=== PATIENT | male | born 1995 | race Caucasian/White ===

== ENCOUNTER 2021-04-10 19:07 | Emergency (ER) | payer SELFPAY ==
[2021-04-10 20:09] VITALS: BP 139/77; PULSE 67; RESP 15; TEMP 36.9; O2SAT 100; BMI 21.7
[2021-04-10 20:15] VITALS: O2SAT 100
--- NOTE | 2021-04-10 20:53 | XRR_ITS ---
PROCEDURE INFORMATION: Exam: XR Chest Exam date and time: 04/10/2021 8:55 PM Age: 25 years old Clinical indication: Cough and shortness of breath TECHNIQUE: Imaging protocol: XR of the chest. Views: 1 view. COMPARISON: CR Chest 2 views* [id number] 05/18/2019 4:14 PM FINDINGS: Lungs: Unremarkable. No consolidation. Pleural spaces: Unremarkable. No pleural effusion. No pneumothorax. Heart/Mediastinum: Unremarkable. No cardiomegaly. Bones/joints: Unremarkable. XR/XR chest 1V portable [id number] IMPRESSION: Negative for infiltrate
--- NOTE | 2021-04-10 20:54 | W.ED.COVID ---
HPI - COVID General: Chief Complaint: COVID symptoms Stated Complaint: H/A, CONGESTION, SORE THROAT Time Seen by Provider: 04/10/21 20:20 Triage information: Has fever, cough or shortness of breath. No known COVID + exposure last 14 days History of Present Illness: HPI Narrative: Patient is a 25-year-old male comes to the ED with upper respiratory symptoms. Patient says since Wednesday he has had sinus congestion and pressure along with drainage. He said his throat is irritated, but it has gotten better over the past couple days. He describes having just mild cough. Patient disease a history of sinus problems. He is also complaining of a headache as well. Denies any known contact with COVID-19 positive patient. Patient says before coming to the ED took some [id number] Tylenol flu medication. Patient endorses having a loss of taste and smell as well. COVID 19 common symptoms: positive headache(s) and nasal congestion; negative fever(s), chills, non-productive cough, productive cough, dyspnea, fatigue, throat pain, nausea, vomiting or diarrhea COVID 19 other sytmptoms: negative chest pain COVID Results: Nasal/Oral Coronavirus 2019 PCR Pending 04/10/21 22:16 04/10/21 Review of Systems Const: Denies: fever(s), chills or fatigue Eyes: Denies: change in vision or eye discomfort ENMT: Reports: nasal discharge, nasal congestion and sinus pain (maxillary sinus pain); Denies: throat pain or odynophagia Card: Denies: chest pain, palpitations, edema, swelling of feet/ankles, dyspnea on exertion or orthopnea Resp: Denies: dyspnea, productive cough or non-productive cough GI: Denies: abdominal pain, nausea, vomiting, diarrhea, constipation or hematochezia : Denies: flank pain, difficulty urinating, dysuria or hematuria Musc: Denies: neck pain, back pain or extremity swelling Skin/Breast: Denies: rash or new lesions Neuro: Reports: headache(s); Denies: numbness in extremities or weakness in extremities Physical Exam Const: COMMON NORMALS: no acute distress, patient oriented x3, healthy appearing and alert GENERAL APPEARANCE: cooperative and comfortable HENMT: COMMON NORMALS: normocephalic HEAD & SCALP: normocephalic FACE & SINUS: sinus tenderness frontal (Bilateral) and maxillary (Bilateral) MOUTH: Normal oral and palatal mucosa present THROAT: posterior oropharynx normal and uvula midline Neck/C-Spine: COMMON NORMALS: supple GENERAL: Yes normal visual inspection Resp: COMMON NORMALS: normal respiratory effort, No retractions, No use of accessory muscles and clear to auscultation bilaterally AUSCULTATION: clear to auscultation bilaterally Cardio: COMMON NORMALS: regular rate, regular rhythm, S1 normal heart sound present, S2 normal heart sound present, No gallops present (Cardio), No clicks present (Cardio), No murmurs present (Cardio) and Peripheral pulses 2+ throughout RATE: regular rate RHYTHM: regular rhythm HEART SOUNDS: S1 normal heart sound present and S2 normal heart sound present PERIPHERAL PULSES: Peripheral pulses 2+ throughout GI: COMMON NORMALS: Normal to inspection, nondistended, normoactive bowel sounds present, Soft to palpation, non-tender and no masses PALPATION: Yes Soft to palpation : COMMON NORMALS: Yes no CVA tenderness BLADDER/KIDNEY EXAM: Yes no CVA tenderness Back/Pelvis: COMMON NORMALS: no CVA tenderness Extremity: COMMON NORMALS: normal to inspection Neuro: COMMON NORMALS: patient oriented x3 and moves all extremities SENSORIUM/ORIENTATION: Yes alert Skin: GENERAL SKIN EXAM: dry skin Course Vital Signs: Vital signs: Vital Signs Temperature 98.4 F 04/10/21 22:25 Pulse Rate 67 04/10/21 20:09 Respiratory Rate 15 04/10/21 22:25 Blood Pressure 139/77 04/10/21 20:09 Pulse Oximetry 100 04/10/21 22:25 MDM - COVID MDM Narrative: Medical decision making narrative: Patient is a 25-year-old male comes to the ED with upper respiratory infection symptoms and sinus congestion and pain. Patient's vitals are stable and he appears nontoxic and in no acute distress or pain. Patient has some bilateral maxillary sinus tenderness. The rest of the exam was benign. Chest x-ray showed no acute findings. COVID-19 test pending. Patient diagnosed with sinusitis and upper respiratory infection. He was discharged home with a prescription for Augmentin and Medrol Dosepak. Return to ED precautions given. Told patient self quarantine until he finds out COVID-19 test results. I told him to contact [facility] in the next 48 hours to find out results. Follow-up with PCP in 7 to 10 days for reevaluation. Patient understood and agree with plan. Lab Data: Attestation: I reviewed the patient's lab results. Imaging Data: CXR: Attestation: I personally reviewed and interpreted this imaging study as follows: Radiologist's impression: [id number] [place], [place] [address]VRun ReportSigned Patient: Vamsi Stephen #: [id number]: 1995Acct#:[id number]/Sex: 25 / MADM Date: 04/10/21Loc: ERRoom/Bed:Attending Dr: Ordering Provider/Ordering MD: Hansel Haynes Date of Service: 04/10/21 Procedure(s): XR chest 1V portable [id number] Accession Number(s): [id number] Report Number: [id number] PROCEDURE INFORMATION: Exam: XR Chest Exam date and time: 04/10/2021 8:55 PM Age: 25 years old Clinical indication: Cough and shortness of breath TECHNIQUE: Imaging protocol: XR of the chest. Views: 1 view. COMPARISON: CR Chest 2 views* [id number] 05/18/2019 4:14 PM FINDINGS: Lungs: Unremarkable. No consolidation. Pleural spaces: Unremarkable. No pleural effusion. No pneumothorax. Heart/Mediastinum: Unremarkable. No cardiomegaly. Bones/joints: Unremarkable. XR/XR chest 1V portable [id number] IMPRESSION: Negative for infiltrate Dictated By:Adonay Cespedes MDSigned By:Adonay Cespedes MDSigned Date/Time:04/10/212136DD/ 35 COVID Results: Nasal/Oral Coronavirus 2019 PCR Pending 04/10/21 22:16 04/10/21 Discharge Plan Discharge Patient Disposition: Home Clinical Impression: Sinusitis, acute maxillary Qualifiers: Recurrence: not specified as recurrent Qualified Code(s): J01.00 - Acute maxillary sinusitis, unspecified Upper respiratory infection Qualifiers: URI type: acute nasopharyngitis (common cold) Qualified Code(s): J00 - Acute nasopharyngitis [common cold] Condition: Stable Prescriptions: New Augmentin 500-125 mg tablet 1 tab PO BID 10 Days Qty: 20 RF: 0 Medrol (Bogdan) 4 mg tablets,dose pack See Rx Instructions .ROUTE .COMPLEX Qty: 21 RF: 0 Discharge Orders: Discharge ED (Routine); Ordered 04/10/21 Ordered By: Hansel Haynes Discharge Diet: Regular Discharge Activity: Limit activity as instructed Patient Instructions: Sinusitis (ED), Upper Respiratory Infection (ED) Activity Restrictions/Additional Instructions: Follow-up with medical provider as directed. Self quarantine pending COVID-19 test results. The COVID-19 labs should be back in 24 to 48 hours. Take medications as prescribed. Take [id number] Tylenol or ibuprofen for fevers or pain. Return to the ER or your medical provider if condition worsens. Please read and understand discharge instructions. Thank you for choosing [facility] for your healthcare needs today. Please realize this is an emergency room and that we are providing you with a medical screening exam and this may not be complete and all inclusive of all the testing and or work up that you may need to determine your ailment or severity of your illness. It is very important that you follow up as instructed or that you return to the Emergency Department should you have concerns or if your condition changes or worsens in any way. Stand Alone Forms: Work/School Release Coding Level of Care Code ED Phlebotomy Program Coordinator for Heather Bermudez Exam Comprehensive
[2021-04-10 22:25] VITALS: RESP 15; TEMP 36.9; O2SAT 100
[2021-04-12 14:10] LABS: Coronavirus Test Green County Not Detected
== END 2021-04-10 22:26 | disposition home or self-care (01) ==
PROVIDERS: Emergency Provider Physician Assistant
DX: J01.00 Acute maxillary sinusitis, unspecified (principal); J00 Acute nasopharyngitis [common cold]; Z20.822 Contact with and (suspected) exposure to COVID-19
CPT/HCPCS: 71045; 87635; 99283

== ENCOUNTER 2021-07-11 22:13 | Emergency (ER) | payer OTHER, SELFPAY ==
[2021-07-11 22:18] VITALS: BP 134/75; PULSE 109; RESP 18; TEMP 37.7; O2SAT 94; BMI 19.2
[2021-07-11] MEDS: acetaminophen 500 mg Tablet 1000 MG PO (22:32)
[2021-07-11 23:01] LABS: SARS Covid-2 Antigen Positive (Negative)
--- NOTE | 2021-07-11 23:31 | ED_ITS ---
HPI - COVID General: Chief Complaint: Shortness of Breath/Dyspnea Stated Complaint: sob, COVID symptoms Time Seen by Provider: 07/11/21 23:31 Triage information: Has fever, cough or shortness of breath . No known COVID + exposure last 14 days History of Present Illness: HPI Narrative: Patient came in today for complaints of illness for about 1 week now. Patient woke up feeling short of breath tonight. Patient appears well. Patient appears in no pain. COVID 19 common symptoms: positive dyspnea COVID Results: SARS-CoV-2 Antigen (Rapid) Positive (Negative) H 07/11/21 22:29 07/11/21 Nasal/Oral Coronavirus 2019 PCR Not detected 04/10/21 22:16 04/10/21 Review of Systems General: Reports: 10 or more systems reviewed and unremarkable except in HPI and below Resp: Reports: dyspnea Physical Exam Const: COMMON NORMALS: no acute distress and patient oriented x3 GENERAL APPEARANCE: cooperative HENMT: COMMON NORMALS: normocephalic and Normal external nose present HEAD & SCALP: normal to inspection and normocephalic NOSE: Normal external nose present MOUTH: Normal oral and palatal mucosa present Eye: GENERAL EYE: appearance normal, both eyes and all related structures Neck/C-Spine: COMMON NORMALS: full ROM Chest: COMMONS NORMALS: normal inspection of the chest Resp: COMMON NORMALS: normal respiratory effort and clear to auscultation bilaterally EFFORT & INSPECTION: Yes able to speak in complete sentences AUSCULTATION: clear to auscultation bilaterally Cardio: COMMON NORMALS: regular rate and regular rhythm RATE: regular rate RHYTHM: regular rhythm GI: COMMON NORMALS: non-tender Back/Pelvis: COMMON NORMALS: thoracic and lumbar spine normal to inspection Extremity: COMMON NORMALS: normal to inspection Neuro: COMMON NORMALS: patient oriented x3 and moves all extremities Psych: COMMON NORMALS: mental status grossly normal and cooperative Skin: COMMON NORMALS: no rashes or lesions noted GENERAL SKIN EXAM: no rashes or lesions noted Course Vital Signs: Vital signs: Vital Signs Temperature 100 F H 07/12/21 00:01 Pulse Rate 109 H 07/12/21 00:01 Respiratory Rate 18 07/12/21 00:01 Blood Pressure 134/75 07/12/21 00:01 Pulse Oximetry 94 07/12/21 00:01 MDM - COVID MDM Narrative: Medical decision making narrative: Patient came in today for complaints of shortness of breath starting tonight. Patient has been ill for about 1 week. Patient has continued to work. On exam lungs are clear to auscultation. Abdomen soft nontender. Patient does have a fine rash to his upper extremities. Distal pulses are intact. No's abnormal swelling is noted. Oropharynx is pink and moist. Vital signs are normal except for mild elevation in temperature of 100 and mild elevation in pulse at 109. Differential diagnosis includes COVID-19, viral syndrome, pneumonia. COVID-19 test was positive. Lungs were clear to auscultation patient's O2 sats were 94- 98% on room air. Patient did have a slight rash which I believe is probably secondary to his viral syndrome. Reviewed exam with patient with recommendations for treatment. Patient was given 1 dose of dexamethasone for his shortness of breath. Patient was written a prescription for Zofran to help with nausea and to improve appetite. Patient was given an albuterol inhaler to help with shortness of breath. Patient was recommended to return to the ER for worsening symptoms or new concerns. Patient reported understanding. Lab Data: Labs: Lab Results 07/11/21 Range/Units 22:29 SARS-CoV-2 Ag (Rap id) Positive H (Negative) COVID Results: SARS-CoV-2 Antigen (Rapid) Positive (Negative) H 07/11/21 22:29 07/11/21 Nasal/Oral Coronavirus 2019 PCR Not detected 04/10/21 22:16 04/10/21 Discharge Plan Discharge Patient Disposition: Home Clinical Impression: COVID-19 Condition: Stable Prescriptions: New ondansetron 4 mg tablet,disintegrating 4 mg PO Q8H PRN (Reason: nausea and vomiting) Qty: 10 RF: 0 Discharge Orders: Discharge ED (Routine); Ordered 07/11/21 Ordered By: Isaiah Clinton Discharge Diet: Advance as tolerated Discharge Activity: Increase activity as tolerated Patient Instructions: Opioid Safety Activity Restrictions/Additional Instructions: Use albuterol, 2 puffs every 4 hours as needed for shortness of breath. Be sure to drink plenty of water. Use medications as directed. Follow-up with primary care in 3 days for recheck. Return to the ER for worsening symptoms or new concerns. Coding Level of Care Code ED Irb Compliance Coordinator for Heather Bermudez
[2021-07-11 23:55] VITALS: PULSE 88; RESP 17; O2SAT 98
[2021-07-11] MEDS: albuterol 8 gm MDI 2 PUFF INHALATION (23:55)
[2021-07-11] MEDS: dexamethasone 4 mg Tablet 10 MG PO (23:57)
[2021-07-12] VITALS: PULSE 89
[2021-07-12 00:01] VITALS: BP 134/75; PULSE 109; RESP 18; TEMP 37.7; O2SAT 94
== END 2021-07-12 00:02 | disposition home or self-care (01) ==
PROVIDERS: Emergency Provider Nurse Practitioner Family
DX: U07.1 COVID-19 (principal)
CPT/HCPCS: 87426; 94640; 99283; J3535; J8540

== ENCOUNTER 2022-05-14 13:50 | Oncology outpatient (recurring) (ONCR) | payer OTHER, SELFPAY | END 2022-06-07 23:59 | disposition home or self-care (01) | PROVIDERS: Visit Provider Internal Medicine Medical Oncology | DX: Z53.9 Procedure and treatment not carried out, unspecified reason (principal) ==

== ENCOUNTER 2022-07-09 05:34 | Day surgery (SDC) | payer OTHER, SELFPAY ==
[2022-07-09] VITALS (7 sets, daily range): BP systolic 111–140; BP diastolic 60–88; PULSE 84–92; RESP 12–16; TEMP 36.3–37.1; O2SAT 94–99
--- NOTE | 2022-07-09 | SCC_ITS ---
Procedure done: Mediport insertion 1.9 seconds of fluoroscopic guidance, for a cumulative dose of 0.2 mGy, was provided to Dr. Aguilar by the radiology department. C-arm images of the chest were saved for the patient's permanent record. [facility]
--- NOTE | 2022-07-09 06:29 | P.ANESASSM_ITS ---
Pre-Anesthetic Assessment Height/Weight: Height 1.73 m Weight 59.421 kg Temp Pulse Resp BP Pulse Ox O2 Del Method 97.3 F L 88 16 140/88 99 07/09/22 05:58 07/09/22 05:58 07/09/22 05:58 07/09/22 05:58 07/09/22 05:58 07/09/22 05:58 Preop Diagnosis: Testicular cancer Operation Date: 07/09/22 07:00 Proposed Procedures p Portacath Placement 06038,C62.12(Not Applicable) - Ha Aguilar DO Familial anesthetic complications: None Was Beta Tracey taken within 24 hours: N/A Was Clonidine taken within 24 hours: N/A Last intake: Intake Last Liquid Date 07/08/22 Last Liquid Time 23:40 Last Solid Date 07/08/22 Last Solid Time 22:30 Social No alcohol and No tobacco Exam alert, oriented x 3, clear to auscultation bilaterally and regular rate & rhythm Airway Submandibular: within normal limits Cervical ROM: within normal limits Mallampati: Class I Dentition: full History/ROS No significant complaints Pulmonary None reported CV/HEM None reported None reported Hepatic Seminonoma of left testis GI None reported Metabolic None reported Musc/skel None reported Neuropsych None reported Anesthetic Plan ASA status: 3 Anesthesia: Anesthesia Evaluation and General Other: We discussed risk and benefits of general anesthesia including PONV, sore throat (sometimes severe), corneal abrasion, positioning and peripheral nerve injuries, life threatening allergic reaction, post operative ICU admission requiring prolonged intubation, stroke, heart attack, , and rare incidences of recall. Patient consents to proceed with general anesthesia. Risk of > 500 ml blood loss (7ml/kg in children): No Medications/Allergies Home Medications Medication Instructions Recorded Confirmed Last Taken Type Lactobacillus 40-Bifidobact 1 cap PO DAILY 05/14/22 07/09/22 07/08/22 History 3-S.thermophilus 100 billion cell capsule (Probiotic) ascorbic acid (vitamin C) 1,500 mg 1,500 mg PO DAILY 05/14/22 07/09/22 07/08/22 History tablet,extended release multivitamin 1 tab PO DAILY 06/03/22 07/09/22 07/08/22 History Allergies Allergy/AdvReac Type Severity Reaction Status Date / Time Penicillins Allergy Mild ALGY-Rash Verified 06/03/22 08:29 [facility] Anesthesia Medical History Seminoma of left testis Surgical History Hx of unilateral orchiectomy (03/27/22) Left radical orchiectomy Family History Mother Cervical cancer Brother , 28 Brain aneurysm Social History Smoking and tobacco status: former smoker Alcohol intake: current Alcohol intake frequency: holidays/special occasions only Alcohol type: hard liquor Adopted: No Caregiver/support person: No Lives independently: Yes Housing: Apartment Marital status: Life Partner Highest education level completed: High School Graduate service: No Current occupational status: employed Data Anesthesia Cardiac Studies: No Data to Display
[2022-07-09] MEDS: vancomycin 1,000 MG in sodium chloride 0.9% 250 ML 250 MG IV (06:42)
--- NOTE | 2022-07-09 06:47 | SC_ITS ---
WS: [id number] Exam: C-arm FL for CVA [id number] Date/Time of Exam: 07/09/2022 6:47 AM Reason For Exam: OR 6 Single anterior posterior C-arm image of the left chest is submitted for evaluation. The image depicts a left-sided subclavian port appearing to end in the lower one third of the SVC. Th e visualized left lung is fully expanded. No other significant finding on this limited study.
[2022-07-09] MEDS: midazolam 1 mg/mL INJ 2 mL 2 MG IVP (06:52)
--- NOTE | 2022-07-09 06:54 | P.HP_ITS ---
Providers/Chief Complaint Chief Complaint: SEMINOMA History of Present Illness Vamsi Stephen is a 27 year old male with a seminoma who presents for Mediport placement Review of Systems General: Reports: 10 or more systems reviewed and unremarkable except in HPI and below Medications/Allergies Home Medications Medication Instructions Recorded Confirmed Last Taken Type Lactobacillus 40-Bifidobact 1 cap PO DAILY 05/14/22 07/09/22 07/08/22 History 3-S.thermophilus 100 billion cell capsule (Probiotic) ascorbic acid (vitamin C) 1,500 mg 1,500 mg PO DAILY 05/14/22 07/09/22 07/08/22 History tablet,extended release multivitamin 1 tab PO DAILY 06/03/22 07/09/22 07/08/22 History Allergies Allergy/AdvReac Type Severity Reaction Status Date / Time Penicillins Allergy Mild ALGY-Rash Verified 06/03/22 08:29 PFSH Acute PFSH: Medical History Seminoma of left testis Surgical History Hx of unilateral orchiectomy (03/27/22) Left radical orchiectomy Family History Mother Cervical cancer Brother , 28 Brain aneurysm Social History Smoking and tobacco status: former smoker Alcohol intake: current Alcohol intake frequency: holidays/special occasions only Alcohol type: hard liquor Adopted: No Caregiver/support person: No Lives independently: Yes Housing: Apartment Marital status: Life Partner Highest education level completed: High School Graduate service: No Current occupational status: employed Vitals/I&O/Wt Last Vital Signs Temp 97.3 F L 07/09/22 05:58 Pulse 88 07/09/22 05:58 Resp 16 07/09/22 05:58 BP 140/88 07/09/22 05:58 Pulse Ox 99 07/09/22 05:58 O2 Del Method 07/09/22 05:58 Weight last 48 hrs Weight 131 lb Physical Exam Narrative: General : Patient is well developed , no acute distress, oriented x3 Head : Normal cephalic, a-traumatic. Ears : Pinnae and external canal are normal. Hearing is normal. Eyes : PERRLA, Sclera and injection are normal. No conjunctival discharge. Nose : Mucous membranes are without erythema. Throat : buccal mucosa is normal, gums are without significant recession or hypertrophy. Lungs : Equal chest rise bilaterally, no use of accessory muscles, trachea is midline. Cor : Rate and rhythm are normal. Abdomen : Soft, ND, NT, no g/r/m Extremities : No edema, no cyanosis or clubbing, dorsalis pedis pulses are present bilaterally, non-tender to palpation of calves. Upper extremities are normal bilaterally. Back : non-tender to palpation, no CVA tenderness. Neuro : CN II - XII intact, Upper and lower extremities have equal and full strength A&P Assessment and plan (1) Seminoma of descended left testis: Status: Acute Plan Mediport insertion The risks and benefits of the procedure have been explained and documented Attestations Medical Necessity Statement*: will go home Coding Level of Care Code Acute Otr Owner Operator for g Fwd Diagnoses Seminoma of descended left testis C62.12
[2022-07-09] MEDS: heparin, porcine 1,000 unit/mL INJ 10 mL 10000 UNIT INJECTION (07:24)
[2022-07-09] MEDS: sodium chloride 0.9% 100 mL Bag XX (07:25)
--- NOTE | 2022-07-09 07:42 | P.OP_ITS ---
Operative Report Date of procedure: July 09, 2022 Pre-op diagnosis: Preop Diagnosis Testicular cancer Post-op diagnosis: same Procedure done: Mediport insertion Implants: PowerPort Surgeon: Dr. Ha Aguilar DO Anesthesia: MAC Estimated blood loss (mL): 5 Complications: None apparent Brief History: 27-year-old male with seminoma in need of chemotherapy access. The risks and benefits of Mediport insertion were explained and documented. Procedure: Patient was taken to the operating room and placed supine on the operating room table. All bony prominences were padded. She was given IV sedation and monitored throughout the case by the anesthesia personnel. SCDs were placed and turned on. The arms were tucked to the side. Patient received Ancef 2 g preoperatively IV. The bilateral chest wall was prepped and draped in usual sterile fashion using chlorhexidine base prep. Sterile drapes were applied. We did procedure pause prior to beginning. An 18 gauge needle was placed in the left subclavian vein. Dark, nonpulsatile blood was aspirated. A guidewire was placed through the needle centrally toward the atrial/vena caval junction. Fluoroscopy visualized good placement. The needle was removed and the guidewire was clipped to the drape with a hemostat. Further local anesthetic was infiltrated in the soft tissues of the left chest wall and a #15 blade was used to make a horizontal skin incision. A subcutaneous Mediport pocket was created using Bovie cautery, dissecting down through the skin and subcutaneous tissues. Meticulous hemostasis was achieved. The Mediport was sutured in position using 3-0 vicryl suture x3 stitches. A #15 blade was used to make a small skin kylee around the guidewire insertion area. The Mediport tubing was tunneled through the subcutaneous tissues up to the needle insertion location. A dilator with a peel-away sheath was placed over the guidewire and placed centrally. After measuring with fluoroscopy, the Mediport tubing was cut to length so that the tip would end at the atrial/vena caval junction. The inner cannula and the guidewire were removed, leaving the dilator sheath in place. The Mediport was flushed. The tip of the catheter was inserted through the peel-away sheath and the peel-away sheath removed in the standard fashion. The Mediport was accessed with a straight Sexton needle and dark, nonpulsatile blood was as pirated and flushed using heparinized saline to hep-lock the Mediport. Final fluoroscopy visualization showed no kink in the catheter and the tip of the Mediport tubing near the atrial/vena caval junction. Both skin incisions were thoroughly irrigated and suctioned dry. Meticulous hemostasis noted. The Mediport incision was closed using interrupted 3-0 Vicryl suture for the deep dermal layer and 4-0 Vicryl run to close the skin edge. The left subclavian insertion site incision was closed with a single subcuticular stitch. Skin glue was applied as a topical dressing. This was allowed to dry. Patient was awakened from anesthesia and transferred via her cart to the recovery room in stable condition. All needle, sponge, and instrument counts were correct per the operating personnel x2 counts.
--- NOTE | 2022-07-09 07:47 | XR_ITS ---
WS: [id number] Exam: XR chest 1V portable [id number] Date/Time of Exam: 07/09/2022 7:48 AM Reason For Exam: s/p mediport Comparison 04/10/2021. Left subclavian MediPort is been placed and ends in the lower one third of the SVC in good position. The lungs are clear and fully expanded. Normal cardiomediastinal silhouette. No pleural effusions. Saqib ny structures are intact. XR/XR chest 1V portable [id number] IMPRESSION: 1. Left subclavian port in satisfactory position. No acute cardiopulmonary find ing.
[2022-07-09] MEDS: sodium chloride 0.9% 1,000 ML 30 ML IV (08:29)
--- NOTE | 2022-07-09 14:23 | ANE.PACU2 ---
Inpatient post-anesthesia follow up: Airway intact: Yes Vital signs: Temperature 98.7 F Pulse Rate 84 Respiratory Rate 16 Blood Pressure 115/83 Pulse Oximetry 94 Oxygen Delivery Me thod Room Air Oxygen Flow Rate Fraction of Inspir ed Oxygen Hydration adequate: Yes Nausea and vomiting: No Pain level: 1 Mental status: Baseline
== END 2022-07-09 08:32 | disposition home or self-care (01) ==
PROVIDERS: Visit Provider Surgery
PROC: (CPT 36561; principal; 2022-07-09 07:00)
DX: C62.12 Malignant neoplasm of descended left testis (principal); C62.92 Malignant neoplasm of left testis, unspecified whether descended or undescended; Z87.891 Personal history of nicotine dependence; Z88.0 Allergy status to penicillin; Z90.79 Acquired absence of other genital organ(s)
CPT/HCPCS: 36561; 71045; 76000; 77001; C1788; J1644; J2250; J2704; J3010; J3370; J7030; J7050

== ENCOUNTER 2022-08-03 13:30 | Oncology outpatient (recurring) (ONCR) | payer OTHER, SELFPAY ==
[2022-07-27 08:23] LABS: Basophils % 0.2 %; Eosinophils # 0.1 10^3/uL (0.0-0.8); Eosinophils % 1.9 %; Hematocrit 42.8 % (42.0-52.0); Hemoglobin 14.8 g/dL (11.7-16.6); Lymphocytes # 1.3 10^3/uL (0.8-4.8); Lymphocytes % 19.8 %; Mean Corpuscular HGB Conc 34.6 g/dL (30.0-36.0); Mean Corpuscular Hemoglobin 30.5 pg (28.0-34.0); Mean Corpuscular Volume 88.2 fl (80-94); Mean Platelet Volume 10.3 fL (7.4-10.4); Monocytes # 0.6 10^3/uL (0.2-0.9); Monocytes % 9.6 %; Neutrophils # 4.42 10^3/uL (1.8-7.7); Nucleated Red Blood Cells % 0 %; Platelet Count 228 10^3/cmm (130-400); Red Blood Count 4.85 10^6/uL (4.1-5.3); Red Cell Distribution Width 12.7 % (12.1-15.1); White Blood Count 6.5 10^3/uL (4.0-10.0)
[2022-07-27 09:18] LABS: Alanine Aminotransferase 14 U/L (0-41); Albumin Level 3.8 g/dL (3.5-5.2); Alkaline Phosphatase 121 U/L (40-130); Aspartate Amino Transferase 20 U/L (0-40); Blood Urea Nitrogen 12 mg/dL (6-20); Calcium 8.7 mg/dL (8.5-10.5); Carbon Dioxide 26 mmol/L (22-29); Chloride 102 mmol/L (98-107); Globulin 2.7 g/dL (1.3-4.6); Glomerular Filtration Rate 160.4 mL/min (90-130); Glucose 145 mg/dL (65-115); Osmolality Calculated 284 mOsm/kg (285-295); Sodium 136 mmol/L (136-145); Total Bilirubin 1.4 mg/dL (0.15-1.2); Total Protein 6.5 g/dL (6.6-8.7)
[2022-07-27 09:22] LABS: Anion Gap 11.5 (5-19); HCG Tumor Marker < 1 mIU/mL (0-3); Lactate Dehydrogenase 375 U/L (135-225); Potassium 3.5 mmol/L (3.5-5.1)
[2022-07-27] MEDS: OLANZapine 5 mg TABLET PO (10:36)
[2022-07-27] MEDS: acetaminophen 325 mg Tablet 650 MG PO (10:36)
[2022-07-27] MEDS: sodium chloride 0.9% 250 ML 100 ML IV (11:05)
[2022-07-27] MEDS: ondansetron 2 mg/ML SDV 2 mL 8 MG IVP (11:05)
[2022-07-27] MEDS: famotidine 20 mg/2 mL INJ IVP (11:06)
[2022-07-27] MEDS: diphenhydrAMINE 50 mg/mL SDV 1mL 25 MG IVP (11:07)
[2022-07-27] MEDS: fosaprepitant 150 MG in sodium chloride 0.9% 150 ML 300 MG IV (11:08)
[2022-07-27] MEDS: etoposide 170 MG in sodium chloride 0.9%(non-DEHP) 500 ML 508.5 MG IV (12:12)
[2022-07-27] MEDS: potassium chloride 20 MEQ in sodium chloride 0.9% 500 ML 500 MEQ IV (14:34)
[2022-07-27] MEDS: FUROsemide 10 mg/mL SDV 2mL 20 MG IVP (14:34)
[2022-07-27 15:48] VITALS: BP 103/69; PULSE 79; RESP 16; TEMP 36.3; O2SAT 99
[2022-07-28 08:01] VITALS: BP 126/72; PULSE 87; RESP 16; TEMP 36.7; O2SAT 99
[2022-07-28] MEDS: sodium chloride 0.9% 250 ML 100 ML IV (10:12)
[2022-07-28] MEDS: ondansetron 2 mg/ML SDV 2 mL 8 MG IVP (10:13)
[2022-07-28] MEDS: famotidine 20 mg/2 mL INJ IVP (10:17)
[2022-07-28] MEDS: diphenhydrAMINE 50 mg/mL SDV 1mL 25 MG IVP (10:20)
[2022-07-28] MEDS: acetaminophen 325 mg Tablet 650 MG PO (10:20)
[2022-07-28] MEDS: OLANZapine 5 mg TABLET PO (10:20)
[2022-07-28] MEDS: etoposide 170 MG in sodium chloride 0.9%(non-DEHP) 500 ML 508.5 MG IV (10:47)
[2022-07-28] MEDS: FUROsemide 10 mg/mL SDV 2mL 20 MG IVP (13:09)
[2022-07-28] MEDS: potassium chloride 20 MEQ in sodium chloride 0.9% 500 ML 500 MEQ IV (13:13)
[2022-07-28 14:40] VITALS: BP 128/70; PULSE 85; RESP 16; TEMP 37.1; O2SAT 99
[2022-07-29] MEDS: acetaminophen 325 mg Tablet 650 MG PO (10:23)
[2022-07-29] MEDS: diphenhydrAMINE 50 mg/mL SDV 1mL 25 MG IVP (10:25)
[2022-07-29] MEDS: ondansetron 2 mg/ML SDV 2 mL 8 MG IVP (10:26)
[2022-07-29] MEDS: famotidine 20 mg/2 mL INJ IVP (10:26)
[2022-07-29] MEDS: OLANZapine 5 mg TABLET PO (10:26)
[2022-07-29] MEDS: sodium chloride 0.9% 250 ML 75 ML IV (10:27)
[2022-07-29] MEDS: etoposide 170 MG in sodium chloride 0.9%(non-DEHP) 500 ML 508.5 MG IV (11:13)
[2022-07-29] MEDS: potassium chloride 20 MEQ in sodium chloride 0.9% 500 ML 500 MEQ IV (13:35)
[2022-07-29] MEDS: FUROsemide 10 mg/mL SDV 2mL 20 MG IVP (14:00)
[2022-07-29 14:26] VITALS: BP 112/74; PULSE 60; RESP 16; TEMP 36.3; O2SAT 99
[2022-07-30 08:01] VITALS: BP 122/78; BP 136/80; PULSE 84; PULSE 89; RESP 16; TEMP 36.9; TEMP 37.3; O2SAT 99
[2022-07-30] MEDS: sodium chloride 0.9% 250 ML 75 ML IV (09:51)
[2022-07-30] MEDS: diphenhydrAMINE 50 mg/mL SDV 1mL 25 MG IVP (09:52)
[2022-07-30] MEDS: OLANZapine 5 mg TABLET PO (09:52)
[2022-07-30] MEDS: famotidine 20 mg/2 mL INJ IVP (09:52)
[2022-07-30] MEDS: acetaminophen 325 mg Tablet 650 MG PO (09:53)
[2022-07-30] MEDS: ondansetron 2 mg/ML SDV 2 mL 8 MG IVP (09:53)
[2022-07-30] MEDS: etoposide 170 MG in sodium chloride 0.9%(non-DEHP) 500 ML 508.5 MG IV (10:21)
[2022-07-30] MEDS: potassium chloride 20 MEQ in sodium chloride 0.9% 500 ML 500 MEQ IV (12:43)
[2022-07-30] MEDS: FUROsemide 10 mg/mL SDV 2mL 20 MG IVP (13:29)
[2022-07-30 13:30] VITALS: BP 131/86; PULSE 78; RESP 16; TEMP 36.5; O2SAT 99
[2022-07-31] MEDS: OLANZapine 5 mg TABLET PO (08:50)
[2022-07-31] MEDS: acetaminophen 325 mg Tablet 650 MG PO (08:50)
[2022-07-31] MEDS: sodium chloride 0.9% 250 ML 100 ML IV (08:58)
[2022-07-31] MEDS: diphenhydrAMINE 50 mg/mL SDV 1mL 25 MG IVP (08:59)
[2022-07-31] MEDS: famotidine 20 mg/2 mL INJ IVP (08:59)
[2022-07-31] MEDS: palonosetron 0.25 mg/5 mL SDV IVP (09:09)
[2022-07-31] MEDS: etoposide 170 MG in sodium chloride 0.9%(non-DEHP) 500 ML 508.5 MG IV (09:38)
[2022-07-31] MEDS: potassium chloride 20 MEQ in sodium chloride 0.9% 500 ML 500 MEQ IV (11:58)
[2022-07-31] MEDS: pegfilgrastim 6 mg/0.6 mL Kit (onpro) SUBCUT (12:44)
[2022-07-31] MEDS: FUROsemide 10 mg/mL SDV 2mL 20 MG IVP (12:46)
[2022-07-31 12:55] VITALS: BP 104/55; PULSE 68; RESP 16; TEMP 37; O2SAT 98
[2022-08-03 14:26] LABS: Basophils # 0.1 10^3/uL (0.0-0.1); Basophils % 0.5 %; Eosinophils # 0.2 10^3/uL (0.0-0.8); Eosinophils % 0.8 %; Hematocrit 41.7 % (42.0-52.0); Hemoglobin 14.4 g/dL (11.7-16.6); Lymphocytes # 0.5 10^3/uL (0.8-4.8); Lymphocytes % 2.7 %; Mean Corpuscular HGB Conc 34.5 g/dL (30.0-36.0); Mean Corpuscular Hemoglobin 30.6 pg (28.0-34.0); Mean Corpuscular Volume 88.7 fl (80-94); Mean Platelet Volume 10.6 fL (7.4-10.4); Monocytes # 0.1 10^3/uL (0.2-0.9); Monocytes % 0.7 %; Nucleated Red Blood Cells % 0 %; Platelet Count 145 10^3/cmm (130-400); Red Cell Distribution Width 12.4 % (12.1-15.1); White Blood Count 18.4 10^3/uL (4.0-10.0)
[2022-08-03 14:49] LABS: Alanine Aminotransferase 59 U/L (0-41); Albumin Level 4.4 g/dL (3.5-5.2); Alkaline Phosphatase 182 U/L (40-130); Anion Gap 14.2 (5-19); Aspartate Amino Transferase 26 U/L (0-40); Blood Urea Nitrogen 13 mg/dL (6-20); Calcium 8.9 mg/dL (8.5-10.5); Carbon Dioxide 27 mmol/L (22-29); Chloride 100 mmol/L (98-107); Globulin 2.1 g/dL (1.3-4.6); Glucose 137 mg/dL (65-115); Osmolality Calculated 286 mOsm/kg (285-295); Potassium 4.2 mmol/L (3.5-5.1); Sodium 137 mmol/L (136-145); Total Bilirubin 1.6 mg/dL (0.15-1.2); Total Protein 6.5 g/dL (6.6-8.7)
[2022-08-03 15:12] LABS: Neutrophils # 22.51 10^3/uL (1.8-7.7); Neutrophils % 95.3 %; Slide Review Slide Review Perform
== END 2022-08-07 23:59 | disposition home or self-care (01) ==
PROVIDERS: Nurse Practitioner; Visit Provider Internal Medicine Medical Oncology
DX: C62.12 Malignant neoplasm of descended left testis (principal)
CPT/HCPCS: 36591; 80053; 82105; 83615; 84702; 85025; 96366; 96367; 96372; 96375; 96377; 96413; 96415; 96417; J1100; J1200; J1453; J1940; J2405; J2469; J2506; J3475; J3480; J3490; J7030; J7040; J7050; J9060; J9181

== ENCOUNTER 2022-09-07 08:00 | Oncology outpatient (recurring) (ONCR) | payer OTHER, SELFPAY ==
[2022-08-17 08:30] LABS: Basophils % 0.4 %; Eosinophils % 0.1 %; Hematocrit 33.6 % (42.0-52.0); Hemoglobin 11.9 g/dL (11.7-16.6); Lymphocytes # 1.6 10^3/uL (0.8-4.8); Lymphocytes % 23.4 %; Mean Corpuscular HGB Conc 35.4 g/dL (30.0-36.0); Mean Corpuscular Volume 87.5 fl (80-94); Mean Platelet Volume 9.5 fL (7.4-10.4); Monocytes # 0.6 10^3/uL (0.2-0.9); Monocytes % 9.1 %; Neutrophils # 4.21 10^3/uL (1.8-7.7); Nucleated Red Blood Cells % 0 %; Platelet Count 228 10^3/cmm (130-400); Red Blood Count 3.84 10^6/uL (4.1-5.3); Red Cell Distribution Width 13.8 % (12.1-15.1); White Blood Count 6.9 10^3/uL (4.0-10.0)
[2022-08-17 08:46] LABS: Alanine Aminotransferase 15 U/L (0-41); Albumin Level 3.8 g/dL (3.5-5.2); Alkaline Phosphatase 109 U/L (40-130); Anion Gap 10.9 (5-19); Aspartate Amino Transferase 14 U/L (0-40); Blood Urea Nitrogen 16 mg/dL (6-20); Calcium 8.5 mg/dL (8.5-10.5); Carbon Dioxide 26 mmol/L (22-29); Chloride 103 mmol/L (98-107); Globulin 2.4 g/dL (1.3-4.6); Glomerular Filtration Rate 160.4 mL/min (90-130); Glucose 109 mg/dL (65-115); Osmolality Calculated 284 mOsm/kg (285-295); Potassium 3.9 mmol/L (3.5-5.1); Sodium 136 mmol/L (136-145); Total Bilirubin 0.4 mg/dL (0.15-1.2); Total Protein 6.2 g/dL (6.6-8.7)
[2022-08-17 09:03] LABS: Slide Review Slide Review Perform
[2022-08-17] MEDS: OLANZapine 5 mg TABLET PO (09:53)
[2022-08-17] MEDS: acetaminophen 325 mg Tablet 650 MG PO (09:53)
[2022-08-17] MEDS: palonosetron 0.25 mg/5 mL SDV IVP (09:58)
[2022-08-17] MEDS: sodium chloride 0.9% 250 ML 100 ML IV (09:58)
[2022-08-17] MEDS: famotidine 20 mg/2 mL INJ IVP (09:59)
[2022-08-17] MEDS: diphenhydrAMINE 50 mg/mL SDV 1mL 25 MG IVP (10:00)
[2022-08-17] MEDS: fosaprepitant 150 MG in sodium chloride 0.9% 150 ML 300 MG IV (10:01)
[2022-08-17] MEDS: etoposide 170 MG in sodium chloride 0.9%(non-DEHP) 500 ML 508.5 MG IV (11:06)
[2022-08-17] MEDS: FUROsemide 10 mg/mL SDV 2mL 20 MG IVP (13:12)
[2022-08-17] MEDS: potassium chloride 20 MEQ in sodium chloride 0.9% 500 ML 500 MEQ IV (13:12)
[2022-08-17 14:14] VITALS: BP 102/56; PULSE 88; RESP 18; TEMP 37.1; O2SAT 100
[2022-08-18 08:03] VITALS: BP 131/71; PULSE 91; RESP 16; TEMP 37.5; O2SAT 99
[2022-08-18] MEDS: OLANZapine 5 mg TABLET PO (08:17)
[2022-08-18] MEDS: acetaminophen 325 mg Tablet 650 MG PO (08:17)
[2022-08-18] MEDS: sodium chloride 0.9% 250 ML 100 ML IV (08:18)
[2022-08-18] MEDS: famotidine 20 mg/2 mL INJ IVP (08:20)
[2022-08-18] MEDS: diphenhydrAMINE 50 mg/mL SDV 1mL 25 MG IVP (08:24)
[2022-08-18] MEDS: etoposide 170 MG in sodium chloride 0.9%(non-DEHP) 500 ML 508.5 MG IV (10:20)
[2022-08-18] MEDS: potassium chloride 20 MEQ in sodium chloride 0.9% 500 ML 500 MEQ IV (12:22)
[2022-08-18] MEDS: FUROsemide 10 mg/mL SDV 2mL 20 MG IVP (12:25)
[2022-08-18 13:25] VITALS: BP 112/61; PULSE 87; RESP 16; TEMP 37.2; O2SAT 99
[2022-08-19 07:59] VITALS: BP 148/77; PULSE 86; RESP 16; TEMP 37.2; O2SAT 99
[2022-08-19] MEDS: famotidine 20 mg/2 mL INJ IVP (08:18)
[2022-08-19] MEDS: sodium chloride 0.9% 250 ML 100 ML IV (08:18)
[2022-08-19] MEDS: OLANZapine 5 mg TABLET PO (08:19)
[2022-08-19] MEDS: acetaminophen 325 mg Tablet 650 MG PO (08:19)
[2022-08-19] MEDS: diphenhydrAMINE 50 mg/mL SDV 1mL 25 MG IVP (08:20)
[2022-08-19] MEDS: etoposide 170 MG in sodium chloride 0.9%(non-DEHP) 500 ML 508.5 MG IV (10:21)
[2022-08-19] MEDS: potassium chloride 20 MEQ in sodium chloride 0.9% 500 ML 500 MEQ IV (12:28)
[2022-08-19] MEDS: FUROsemide 10 mg/mL SDV 2mL 20 MG IVP (12:31)
[2022-08-19 13:41] VITALS: BP 122/68; PULSE 89; RESP 16; TEMP 37.7; O2SAT 99
[2022-08-20] MEDS: sodium chloride 0.9% 250 ML 100 ML IV (09:59)
[2022-08-20] MEDS: acetaminophen 325 mg Tablet 650 MG PO (10:01)
[2022-08-20] MEDS: OLANZapine 5 mg TABLET PO (10:01)
[2022-08-20] MEDS: diphenhydrAMINE 50 mg/mL SDV 1mL 25 MG IVP (10:02)
[2022-08-20] MEDS: famotidine 20 mg/2 mL INJ IVP (10:02)
[2022-08-20] MEDS: palonosetron 0.25 mg/5 mL SDV IVP (10:06)
[2022-08-20] MEDS: etoposide 170 MG in sodium chloride 0.9%(non-DEHP) 500 ML 508.5 MG IV (10:29)
[2022-08-20] MEDS: potassium chloride 20 MEQ in sodium chloride 0.9% 500 ML 500 MEQ IV (12:55)
[2022-08-20] MEDS: FUROsemide 10 mg/mL SDV 2mL 20 MG IVP (12:55)
[2022-08-20 14:18] VITALS: BP 130/80; PULSE 87; TEMP 37.5
[2022-08-21] MEDS: sodium chloride 0.9% 250 ML 100 ML IV (09:26)
[2022-08-21] MEDS: OLANZapine 5 mg TABLET PO (09:27)
[2022-08-21] MEDS: acetaminophen 325 mg Tablet 650 MG PO (09:27)
[2022-08-21] MEDS: diphenhydrAMINE 50 mg/mL SDV 1mL 25 MG IVP (09:28)
[2022-08-21] MEDS: famotidine 20 mg/2 mL INJ IVP (09:28)
[2022-08-21] MEDS: etoposide 170 MG in sodium chloride 0.9%(non-DEHP) 500 ML 508.5 MG IV (09:37)
[2022-08-21] MEDS: FUROsemide 10 mg/mL SDV 2mL 20 MG IVP (11:54)
[2022-08-21] MEDS: potassium chloride 20 MEQ in sodium chloride 0.9% 500 ML 500 MEQ IV (11:55)
[2022-08-21] MEDS: pegfilgrastim 6 mg/0.6 mL Kit (onpro) SUBCUT (12:16)
[2022-08-21 13:04] VITALS: BP 121/76; PULSE 92; TEMP 37.5; O2SAT 99
[2022-08-31 13:59] LABS: Basophils % 0.2 %; Hematocrit 34.3 % (42.0-52.0); Lymphocytes # 0.8 10^3/uL (0.8-4.8); Lymphocytes % 17.9 %; Mean Corpuscular Hemoglobin 31.4 pg (28.0-34.0); Mean Corpuscular Volume 89.8 fl (80-94); Mean Platelet Volume 10.1 fL (7.4-10.4); Monocytes # 0.5 10^3/uL (0.2-0.9); Neutrophils # 3.23 10^3/uL (1.8-7.7); Neutrophils % 69.8 %; Nucleated Red Blood Cells % 0 %; Platelet Count 104 10^3/cmm (130-400); Red Blood Count 3.82 10^6/uL (4.1-5.3); Red Cell Distribution Width 16.1 % (12.1-15.1); White Blood Count 4.6 10^3/uL (4.0-10.0)
[2022-08-31 14:19] LABS: Alanine Aminotransferase 13 U/L (0-41); Alkaline Phosphatase 153 U/L (40-130); Anion Gap 9.9 (5-19); Aspartate Amino Transferase 12 U/L (0-40); Blood Urea Nitrogen 10 mg/dL (6-20); Calcium 9.1 mg/dL (8.5-10.5); Carbon Dioxide 27 mmol/L (22-29); Chloride 100 mmol/L (98-107); Globulin 2.6 g/dL (1.3-4.6); Glucose 104 mg/dL (65-115); Osmolality Calculated 275 mOsm/kg (285-295); Potassium 3.9 mmol/L (3.5-5.1); Sodium 133 mmol/L (136-145); Total Bilirubin 0.6 mg/dL (0.15-1.2); Total Protein 6.6 g/dL (6.6-8.7)
--- NOTE | 2022-08-31 16:07 | PC.NURSE ---
Called patient to let him know that per Dr. Gates his labs were good. Patient acknowledged understanding and had no other questions. Patient due for his next treatment on 09/07/22.
[2022-09-07 08:23] LABS: Basophils # 0.1 10^3/uL (0.0-0.1); Basophils % 0.8 %; Eosinophils % 0.5 %; Hematocrit 35.2 % (42.0-52.0); Hemoglobin 12.3 g/dL (11.7-16.6); Lymphocytes % 24.8 %; Mean Corpuscular HGB Conc 34.9 g/dL (30.0-36.0); Mean Corpuscular Hemoglobin 31.9 pg (28.0-34.0); Mean Corpuscular Volume 91.2 fl (80-94); Mean Platelet Volume 9.3 fL (7.4-10.4); Monocytes # 0.6 10^3/uL (0.2-0.9); Monocytes % 7.2 %; Neutrophils # 4.48 10^3/uL (1.8-7.7); Neutrophils % 56.3 %; Nucleated Red Blood Cells % 0 %; Platelet Count 279 10^3/cmm (130-400); Red Blood Count 3.86 10^6/uL (4.1-5.3); Red Cell Distribution Width 17.2 % (12.1-15.1)
[2022-09-07 08:38] LABS: Slide Review Slide Review Perform
[2022-09-07 08:48] LABS: Alanine Aminotransferase 12 U/L (0-41); Albumin Level 3.7 g/dL (3.5-5.2); Alkaline Phosphatase 105 U/L (40-130); Anion Gap 12.7 (5-19); Aspartate Amino Transferase 14 U/L (0-40); Blood Urea Nitrogen 13 mg/dL (6-20); Calcium 8.8 mg/dL (8.5-10.5); Carbon Dioxide 26 mmol/L (22-29); Chloride 102 mmol/L (98-107); Globulin 2.6 g/dL (1.3-4.6); Glomerular Filtration Rate 134.3 mL/min (90-130); Glucose 98 mg/dL (65-115); Osmolality Calculated 284 mOsm/kg (285-295); Potassium 3.7 mmol/L (3.5-5.1); Sodium 137 mmol/L (136-145); Total Bilirubin 0.5 mg/dL (0.15-1.2); Total Protein 6.3 g/dL (6.6-8.7)
[2022-09-07] MEDS: acetaminophen 325 mg Tablet 650 MG PO (10:31)
[2022-09-07] MEDS: OLANZapine 5 mg TABLET PO (10:31)
[2022-09-07] MEDS: sodium chloride 0.9% 250 ML 100 ML IV (10:31)
[2022-09-07] MEDS: famotidine 20 mg/2 mL INJ IVP (10:32)
[2022-09-07] MEDS: diphenhydrAMINE 50 mg/mL SDV 1mL 25 MG IVP (10:34)
[2022-09-07] MEDS: fosaprepitant 150 MG in sodium chloride 0.9% 150 ML 300 MG IV (10:34)
[2022-09-07] MEDS: etoposide 170 MG in sodium chloride 0.9%(non-DEHP) 500 ML 508.5 MG IV (11:29)
[2022-09-07] MEDS: FUROsemide 10 mg/mL SDV 2mL 20 MG IVP (13:35)
[2022-09-07] MEDS: potassium chloride 20 MEQ in sodium chloride 0.9% 500 ML 500 MEQ IV (13:47)
[2022-09-07 14:48] VITALS: BP 106/64; PULSE 71; RESP 16; TEMP 36.8; O2SAT 99
== END 2022-09-07 23:59 | disposition home or self-care (01) ==
PROVIDERS: Nurse Practitioner; Visit Provider Internal Medicine Medical Oncology
DX: Z51.11 Encounter for antineoplastic chemotherapy (principal); Z79.899 Other long term (current) drug therapy; C62.12 Malignant neoplasm of descended left testis
CPT/HCPCS: 36591; 80053; 85025; 96366; 96367; 96372; 96375; 96377; 96413; 96417; J1100; J1200; J1453; J1940; J2469; J2506; J3475; J3480; J3490; J7030; J7040; J7050; J9060; J9181

== ENCOUNTER 2022-10-07 08:00 | Oncology outpatient (recurring) (ONCR) | payer OTHER, SELFPAY ==
[2022-09-08] MEDS: sodium chloride 0.9% 250 ML 100 ML IV (09:36)
[2022-09-08] MEDS: acetaminophen 325 mg Tablet 650 MG PO (09:36)
[2022-09-08] MEDS: OLANZapine 5 mg TABLET PO (09:36)
[2022-09-08] MEDS: diphenhydrAMINE 50 mg/mL SDV 1mL 25 MG IVP (09:38)
[2022-09-08] MEDS: famotidine 20 mg/2 mL INJ IVP (09:39)
[2022-09-08] MEDS: etoposide 170 MG in sodium chloride 0.9%(non-DEHP) 500 ML 508.5 MG IV (10:04)
[2022-09-08] MEDS: FUROsemide 10 mg/mL SDV 2mL 20 MG IVP (12:19)
[2022-09-08] MEDS: potassium chloride 20 MEQ in sodium chloride 0.9% 500 ML 500 MEQ IV (12:21)
[2022-09-08 13:37] VITALS: BP 129/58; PULSE 82; TEMP 37.2; O2SAT 98
[2022-09-09] MEDS: sodium chloride 0.9% 250 ML 100 ML IV (09:33)
[2022-09-09] MEDS: acetaminophen 325 mg Tablet 650 MG PO (09:34)
[2022-09-09] MEDS: OLANZapine 5 mg TABLET PO (09:34)
[2022-09-09] MEDS: famotidine 20 mg/2 mL INJ IVP (09:36)
[2022-09-09] MEDS: diphenhydrAMINE 50 mg/mL SDV 1mL 25 MG IVP (09:36)
[2022-09-09] MEDS: etoposide 170 MG in sodium chloride 0.9%(non-DEHP) 500 ML 508.5 MG IV (10:04)
[2022-09-09] MEDS: FUROsemide 10 mg/mL SDV 2mL 20 MG IVP (12:56)
[2022-09-09] MEDS: potassium chloride 20 MEQ in sodium chloride 0.9% 500 ML 500 MEQ IV (12:58)
[2022-09-09 14:09] VITALS: BP 127/71; PULSE 83; TEMP 36.9; O2SAT 83
[2022-09-10] MEDS: OLANZapine 5 mg TABLET PO (10:03)
[2022-09-10] MEDS: acetaminophen 325 mg Tablet 650 MG PO (10:03)
[2022-09-10] MEDS: sodium chloride 0.9% 250 ML 100 ML IV (10:03)
[2022-09-10] MEDS: diphenhydrAMINE 50 mg/mL SDV 1mL 25 MG IVP (10:05)
[2022-09-10] MEDS: famotidine 20 mg/2 mL INJ IVP (10:06)
[2022-09-10] MEDS: etoposide 170 MG in sodium chloride 0.9%(non-DEHP) 500 ML 508.5 MG IV (10:29)
[2022-09-10] MEDS: FUROsemide 10 mg/mL SDV 2mL 20 MG IVP (12:40)
[2022-09-10] MEDS: potassium chloride 20 MEQ in sodium chloride 0.9% 500 ML 500 MEQ IV (12:44)
[2022-09-10 15:09] VITALS: BP 119/71; PULSE 87; TEMP 36.9; O2SAT 98
[2022-09-11 07:56] VITALS: BP 137/79; PULSE 83; RESP 18; TEMP 36.6; O2SAT 99
[2022-09-11] MEDS: sodium chloride 0.9% 250 ML 100 ML IV (09:08)
[2022-09-11] MEDS: palonosetron 0.25 mg/5 mL SDV IVP (09:09)
[2022-09-11] MEDS: famotidine 20 mg/2 mL INJ IVP (09:10)
[2022-09-11] MEDS: acetaminophen 325 mg Tablet 650 MG PO (09:11)
[2022-09-11] MEDS: diphenhydrAMINE 50 mg/mL SDV 1mL 25 MG IVP (09:11)
[2022-09-11] MEDS: OLANZapine 5 mg TABLET PO (09:11)
[2022-09-11] MEDS: etoposide 170 MG in sodium chloride 0.9%(non-DEHP) 500 ML 508.5 MG IV (09:40)
[2022-09-11] MEDS: potassium chloride 20 MEQ in sodium chloride 0.9% 500 ML 500 MEQ IV (11:40)
[2022-09-11] MEDS: FUROsemide 10 mg/mL SDV 2mL 20 MG IVP (11:49)
[2022-09-11 12:28] VITALS: BP 122/79; PULSE 89; RESP 16; TEMP 36.9; O2SAT 99
[2022-09-11] MEDS: pegfilgrastim 6 mg/0.6 mL Kit (onpro) SUBCUT (12:29)
[2022-10-05 08:21] LABS: Basophils % 0.4 %; Eosinophils % 0.4 %; Hematocrit 35.5 % (42.0-52.0); Hemoglobin 12.3 g/dL (11.7-16.6); Lymphocytes # 1.5 10^3/uL (0.8-4.8); Lymphocytes % 26.3 %; Mean Corpuscular HGB Conc 34.6 g/dL (30.0-36.0); Mean Corpuscular Hemoglobin 32.3 pg (28.0-34.0); Mean Corpuscular Volume 93.2 fl (80-94); Mean Platelet Volume 9.7 fL (7.4-10.4); Monocytes # 0.5 10^3/uL (0.2-0.9); Monocytes % 8.9 %; Neutrophils # 3.44 10^3/uL (1.8-7.7); Neutrophils % 62.4 %; Nucleated Red Blood Cells % 0 %; Platelet Count 252 10^3/cmm (130-400); Red Blood Count 3.81 10^6/uL (4.1-5.3); Red Cell Distribution Width 16.8 % (12.1-15.1); White Blood Count 5.5 10^3/uL (4.0-10.0)
[2022-10-05 08:44] LABS: Alanine Aminotransferase 9 U/L (0-41); Albumin Level 3.9 g/dL (3.5-5.2); Alkaline Phosphatase 92 U/L (40-130); Anion Gap 11.8 (5-19); Aspartate Amino Transferase 14 U/L (0-40); Blood Urea Nitrogen 11 mg/dL (6-20); Calcium 8.8 mg/dL (8.5-10.5); Carbon Dioxide 25 mmol/L (22-29); Chloride 102 mmol/L (98-107); Globulin 2.4 g/dL (1.3-4.6); Glucose 116 mg/dL (65-115); Lactate Dehydrogenase 161 U/L (135-225); Osmolality Calculated 280 mOsm/kg (285-295); Potassium 3.8 mmol/L (3.5-5.1); Sodium 135 mmol/L (136-145); Total Bilirubin 0.7 mg/dL (0.15-1.2); Total Protein 6.3 g/dL (6.6-8.7)
[2022-10-05] MEDS: sodium chloride 0.9% 250 ML 100 ML IV (10:00)
[2022-10-05] MEDS: diphenhydrAMINE 50 mg/mL SDV 1mL 25 MG IVP (10:05)
[2022-10-05] MEDS: famotidine 20 mg/2 mL INJ IVP (10:10)
[2022-10-05] MEDS: acetaminophen 325 mg Tablet 650 MG PO (10:16)
[2022-10-05] MEDS: OLANZapine 5 mg TABLET PO (10:17)
[2022-10-05] MEDS: fosaprepitant 150 MG in sodium chloride 0.9% 150 ML 300 MG IV (10:30)
[2022-10-05] MEDS: [UNRECOGNIZED DRUG - REMARK] 509 MG IV (11:12)
[2022-10-05] MEDS: FUROsemide 10 mg/mL SDV 2mL 20 MG IVP (13:25)
[2022-10-05] MEDS: potassium chloride 20 MEQ in sodium chloride 0.9% 500 ML 500 MEQ IV (13:26)
[2022-10-05 14:27] VITALS: BP 113/77; PULSE 85; RESP 16; TEMP 36.6; O2SAT 99
[2022-10-06] MEDS: sodium chloride 0.9% 250 ML 100 ML IV (09:45)
[2022-10-06] MEDS: OLANZapine 5 mg TABLET PO (09:46)
[2022-10-06] MEDS: acetaminophen 325 mg Tablet 650 MG PO (09:46)
[2022-10-06] MEDS: diphenhydrAMINE 50 mg/mL SDV 1mL 25 MG IVP (09:48)
[2022-10-06] MEDS: famotidine 20 mg/2 mL INJ IVP (09:48)
[2022-10-06] MEDS: palonosetron 0.25 mg/5 mL SDV IVP (09:55)
[2022-10-06] MEDS: [UNRECOGNIZED DRUG - REMARK] 509 MG IV (10:15)
[2022-10-06] MEDS: FUROsemide 10 mg/mL SDV 2mL 20 MG IVP (12:35)
[2022-10-06] MEDS: potassium chloride 20 MEQ in sodium chloride 0.9% 500 ML 500 MEQ IV (12:36)
[2022-10-06 13:42] VITALS: BP 110/67; PULSE 79; TEMP 36.9; O2SAT 97
[2022-10-07] MEDS: OLANZapine 5 mg TABLET PO (09:28)
[2022-10-07] MEDS: acetaminophen 325 mg Tablet 650 MG PO (09:28)
[2022-10-07] MEDS: promethazine 25 mg Tablet PO (09:51)
[2022-10-07] MEDS: sodium chloride 0.9% 250 ML 100 ML IV (09:53)
[2022-10-07] MEDS: famotidine 20 mg/2 mL INJ IVP (09:53)
[2022-10-07] MEDS: diphenhydrAMINE 50 mg/mL SDV 1mL 25 MG IVP (09:55)
[2022-10-07] MEDS: [UNRECOGNIZED DRUG - REMARK] 509 MG IV (10:27)
[2022-10-07] MEDS: FUROsemide 10 mg/mL SDV 2mL 20 MG IVP (12:39)
[2022-10-07] MEDS: potassium chloride 20 MEQ in sodium chloride 0.9% 500 ML 500 MEQ IV (12:39)
== END 2022-10-07 23:59 | disposition home or self-care (01) ==
PROVIDERS: Visit Provider Internal Medicine Medical Oncology
DX: C62.12 Malignant neoplasm of descended left testis (principal); Z51.11 Encounter for antineoplastic chemotherapy; Z79.899 Other long term (current) drug therapy; Z79.52 Long term (current) use of systemic steroids
CPT/HCPCS: 80053; 83615; 85025; 96366; 96367; 96375; 96377; 96413; 96415; 96417; J1100; J1200; J1453; J1940; J2469; J2506; J3475; J3480; J3490; J7030; J7040; J7050; J9060; J9181; Q0169

== ENCOUNTER 2022-11-04 11:00 | Oncology outpatient (recurring) (ONCR) | payer OTHER, SELFPAY ==
[2022-10-08 08:00] VITALS: BP 126/81; PULSE 84; RESP 16; TEMP 37.2; O2SAT 99
[2022-10-08] MEDS: acetaminophen 325 mg Tablet 650 MG PO (10:06)
[2022-10-08] MEDS: OLANZapine 5 mg TABLET PO (10:06)
[2022-10-08] MEDS: sodium chloride 0.9% 250 ML 100 ML IV (10:06)
[2022-10-08] MEDS: famotidine 20 mg/2 mL INJ IVP (10:08)
[2022-10-08] MEDS: diphenhydrAMINE 50 mg/mL SDV 1mL 25 MG IVP (10:09)
[2022-10-08] MEDS: [UNRECOGNIZED DRUG - REMARK] 509 MG IV (10:29)
[2022-10-08] MEDS: FUROsemide 10 mg/mL SDV 2mL 20 MG IVP (12:51)
[2022-10-08] MEDS: potassium chloride 20 MEQ in sodium chloride 0.9% 500 ML 500 MEQ IV (12:52)
[2022-10-08 14:00] VITALS: BP 113/75; PULSE 85; RESP 16; TEMP 37.5; O2SAT 99
[2022-10-09] MEDS: acetaminophen 325 mg Tablet 650 MG PO (09:00)
[2022-10-09] MEDS: sodium chloride 0.9% 250 ML 100 ML IV (09:00)
[2022-10-09] MEDS: famotidine 20 mg/2 mL INJ IVP (09:01)
[2022-10-09] MEDS: diphenhydrAMINE 50 mg/mL SDV 1mL 25 MG IVP (09:01)
[2022-10-09] MEDS: OLANZapine 5 mg TABLET PO (09:01)
[2022-10-09] MEDS: palonosetron 0.25 mg/5 mL SDV IVP (09:04)
[2022-10-09] MEDS: [UNRECOGNIZED DRUG - REMARK] 509 MG IV (09:24)
[2022-10-09] MEDS: FUROsemide 10 mg/mL SDV 2mL 20 MG IVP (11:46)
[2022-10-09] MEDS: potassium chloride 20 MEQ in sodium chloride 0.9% 500 ML 500 MEQ IV (11:46)
[2022-10-09] MEDS: pegfilgrastim 6 mg/0.6 mL Kit (onpro) SUBCUT (12:42)
[2022-10-09 12:50] VITALS: BP 110/74; PULSE 92; RESP 16; TEMP 36.9; O2SAT 98
[2022-11-04 11:43] LABS: Basophils % 0.2 %; Eosinophils % 0.7 %; Hematocrit 36.4 % (42.0-52.0); Hemoglobin 12.4 g/dL (11.7-16.6); Lymphocytes # 0.9 10^3/uL (0.8-4.8); Lymphocytes % 20.7 %; Mean Corpuscular HGB Conc 34.1 g/dL (30.0-36.0); Mean Corpuscular Hemoglobin 32.9 pg (28.0-34.0); Mean Corpuscular Volume 96.6 fl (80-94); Mean Platelet Volume 9.5 fL (7.4-10.4); Monocytes # 0.5 10^3/uL (0.2-0.9); Monocytes % 11.5 %; Neutrophils # 2.89 10^3/uL (1.8-7.7); Neutrophils % 66.4 %; Nucleated Red Blood Cells % 0 %; Platelet Count 301 10^3/cmm (130-400); Red Blood Count 3.77 10^6/uL (4.1-5.3); Red Cell Distribution Width 14.5 % (12.1-15.1); White Blood Count 4.4 10^3/uL (4.0-10.0)
[2022-11-04 12:07] LABS: HCG Tumor Marker 1 mIU/mL (0-3)
[2022-11-04 12:20] LABS: Alanine Aminotransferase 17 U/L (0-41); Albumin Level 4.3 g/dL (3.5-5.2); Alkaline Phosphatase 96 U/L (40-130); Anion Gap 11.7 (5-19); Aspartate Amino Transferase 18 U/L (0-40); Blood Urea Nitrogen 13 mg/dL (6-20); Calcium 8.6 mg/dL (8.5-10.5); Carbon Dioxide 24 mmol/L (22-29); Chloride 103 mmol/L (98-107); Globulin 2.1 g/dL (1.3-4.6); Glomerular Filtration Rate 160.4 mL/min (90-130); Glucose 103 mg/dL (65-115); Lactate Dehydrogenase 163 U/L (135-225); Osmolality Calculated 280 mOsm/kg (285-295); Potassium 3.7 mmol/L (3.5-5.1); Sodium 135 mmol/L (136-145); Total Bilirubin 0.6 mg/dL (0.15-1.2); Total Protein 6.4 g/dL (6.6-8.7)
== END 2022-11-07 23:59 | disposition home or self-care (01) ==
PROVIDERS: Visit Provider Internal Medicine Medical Oncology
DX: C62.12 Malignant neoplasm of descended left testis (principal)
CPT/HCPCS: 36591; 80053; 82105; 83615; 84702; 85025; 96367; 96372; 96375; 96377; 96413; 96417; J1100; J1200; J1940; J2469; J2506; J3475; J3480; J3490; J7030; J7040; J7050; J9060; J9181

== ENCOUNTER 2022-12-11 11:15 | Oncology outpatient (recurring) (ONCR) | payer OTHER, SELFPAY ==
[2022-12-11 12:13] LABS: Basophils % 0.3 %; Eosinophils # 0.2 10^3/uL (0.0-0.8); Eosinophils % 2.9 %; Hematocrit 41.5 % (42.0-52.0); Hemoglobin 14.1 g/dL (11.7-16.6); Lymphocytes # 1.3 10^3/uL (0.8-4.8); Lymphocytes % 21.7 %; Mean Corpuscular Hemoglobin 30.7 pg (28.0-34.0); Mean Corpuscular Volume 90.2 fl (80-94); Mean Platelet Volume 9.6 fL (7.4-10.4); Monocytes # 0.6 10^3/uL (0.2-0.9); Monocytes % 10.1 %; Neutrophils # 3.94 10^3/uL (1.8-7.7); Neutrophils % 64.5 %; Nucleated Red Blood Cells % 0 %; Platelet Count 198 10^3/cmm (130-400); Red Cell Distribution Width 11.6 % (12.1-15.1); White Blood Count 6.1 10^3/uL (4.0-10.0)
[2022-12-11 12:37] LABS: Alanine Aminotransferase 39 U/L (0-41); Albumin Level 4.6 g/dL (3.5-5.2); Alkaline Phosphatase 82 U/L (40-130); Anion Gap 14.9 (5-19); Aspartate Amino Transferase 33 U/L (0-40); Blood Urea Nitrogen 10 mg/dL (6-20); Carbon Dioxide 26 mmol/L (22-29); Chloride 102 mmol/L (98-107); Globulin 2.1 g/dL (1.3-4.6); Glomerular Filtration Rate 160.4 mL/min (90-130); Glucose 87 mg/dL (65-115); Osmolality Calculated 286 mOsm/kg (285-295); Potassium 3.9 mmol/L (3.5-5.1); Sodium 139 mmol/L (136-145); Total Bilirubin 1.4 mg/dL (0.15-1.2); Total Protein 6.7 g/dL (6.6-8.7)
[2022-12-11 12:39] LABS: HCG Tumor Marker < 1 mIU/mL (0-3)
[2022-12-11 13:38] LABS: Lactate Dehydrogenase 189 U/L (135-225)
== END 2023-01-05 23:59 | disposition home or self-care (01) ==
LOC: ONCMED 11:16
PROVIDERS: Nurse Practitioner; Nurse Practitioner Family; Visit Provider Internal Medicine Medical Oncology
DX: C62.12 Malignant neoplasm of descended left testis (principal); Z95.828 Presence of other vascular implants and grafts; Z90.79 Acquired absence of other genital organ(s); Z92.21 Personal history of antineoplastic chemotherapy
CPT/HCPCS: 80053; 82105; 83615; 84702; 85025

== ENCOUNTER 2023-01-14 11:17 | Oncology outpatient (recurring) (ONCR) | payer OTHER, SELFPAY | END 2023-02-05 23:59 | disposition home or self-care (01) | LOC: ONCMED 11:17 | PROVIDERS: Visit Provider Internal Medicine Medical Oncology | DX: Z45.2 Encounter for adjustment and management of vascular access device (principal) | CPT/HCPCS: 96523 ==

== ENCOUNTER 2023-03-02 13:30 | Oncology outpatient (recurring) (ONCR) | payer OTHER, SELFPAY ==
[2023-03-02 13:45] VITALS: BP 124/86; PULSE 87; TEMP 37.4
[2023-03-02 14:29] LABS: HCG Tumor Marker 1 mIU/mL (0-3); Tumor Marker Alpha Fetoprotein 1.5 ng/mL (0-8.3)
[2023-03-02 14:40] LABS: Lactate Dehydrogenase 202 U/L (135-225)
== END 2023-03-07 23:59 | disposition home or self-care (01) ==
PROVIDERS: Visit Provider Internal Medicine Medical Oncology
DX: C62.12 Malignant neoplasm of descended left testis (principal)
CPT/HCPCS: 36591; 82105; 83615; 84702; 96523

== ENCOUNTER 2024-02-03 10:12 | Oncology outpatient (recurring) (ONCR) | payer OTHER, SELFPAY | END 2024-02-06 23:59 | disposition home or self-care (01) | PROVIDERS: Visit Provider Internal Medicine Medical Oncology | DX: Z45.2 Encounter for adjustment and management of vascular access device (principal) | CPT/HCPCS: 96523; J1642 ==

== ENCOUNTER 2024-02-16 09:39 | Oncology outpatient (recurring) (ONCR) | payer SELFPAY ==
[2024-02-16 10:07] LABS: Basophils % 0.3 %; Eosinophils # 0.1 10^3/uL (0.0-0.8); Eosinophils % 1.5 %; Hematocrit 41.8 % (37-53); Lymphocytes # 1.3 10^3/uL (0.8-4.8); Lymphocytes % 18.4 %; Mean Corpuscular HGB Conc 34.9 g/dL (30-55); Mean Corpuscular Hemoglobin 32.2 pg (27-33); Mean Corpuscular Volume 92.3 fl (82-101); Mean Platelet Volume 9.5 fL (7.4-10.4); Monocytes # 0.6 10^3/uL (0.2-0.9); Monocytes % 8.5 %; Neutrophils # 4.85 10^3/uL (1.8-7.7); Nucleated Red Blood Cells % 0 %; Platelet Count 213 10^3/cmm (157-399); Red Blood Count 4.53 10^6/uL (3.85-5.65); White Blood Count 6.83 10^3/uL (3.29-11.43)
[2024-02-16 10:27] LABS: Alanine Aminotransferase 20 U/L (0-41); Albumin Level 4.1 g/dL (3.5-5.2); Alkaline Phosphatase 87 U/L (40-130); Aspartate Amino Transferase 20 U/L (0-40); Blood Urea Nitrogen 14 mg/dL (6-20); Calcium 8.9 mg/dL (8.5-10.5); Carbon Dioxide 28 mmol/L (22-29); Chloride 105 mmol/L (98-107); Globulin 2.2 g/dL (1.3-4.6); Glomerular Filtration Rate 133.3 mL/min (90-130); Glucose 100 mg/dL (65-115); Osmolality Calculated 293 mOsm/kg (285-295); Sodium 141 mmol/L (136-145); Total Bilirubin 1.2 mg/dL (0.15-1.2); Total Protein 6.3 g/dL (6.6-8.7)
[2024-02-16 12:04] LABS: HCG Tumor Marker 1 mIU/mL (0-3); Tumor Marker Alpha Fetoprotein 1.8 ng/mL (0-8.3)
[2024-02-16 12:15] LABS: Lactate Dehydrogenase 184 U/L (135-225)
== END 2024-03-07 23:59 | disposition home or self-care (01) ==
PROVIDERS: Internal Medicine; Visit Provider Internal Medicine Medical Oncology
DX: C62.12 Malignant neoplasm of descended left testis
CPT/HCPCS: 36591; 80053; 82105; 83615; 84702; 85025

== ENCOUNTER 2024-03-23 10:25 | Oncology outpatient (recurring) (ONCR) | payer SELFPAY | END 2024-04-07 23:59 | disposition home or self-care (01) | PROVIDERS: Visit Provider Internal Medicine Medical Oncology | DX: Z45.2 Encounter for adjustment and management of vascular access device (principal) | CPT/HCPCS: 96523 ==

== ENCOUNTER 2024-04-13 23:32 | Inpatient (IN) | payer OTHER, SELFPAY ==
[2024-04-13 23:36] VITALS: BP 143/89; PULSE 83; RESP 16; TEMP 36.9; O2SAT 98; BMI 21.4
--- NOTE | 2024-04-13 23:47 | ECG_ITS ---
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 Measurements Intervals [place] Rate: 66 P: 61 VA: 153 QRS: 61 QRSD: 84 T: 53 QT: 371 QTc: 390 Interpretive Statements SINUS RHYTHM No previous ECG available for comparison Electronically Signed On 04-14-2024 8:34:18 CDT by Tl Underwood M.D. [id number]
[2024-04-14 00:39] LABS: Basophils % 0.3 %; Eosinophils # 0.1 10^3/uL (0.0-0.8); Eosinophils % 0.9 %; Lymphocytes # 2.1 10^3/uL (0.8-4.8); Lymphocytes % 22.2 %; Mean Corpuscular Hemoglobin 32.1 pg (27-33); Mean Corpuscular Volume 89.4 fl (82-101); Monocytes # 0.7 10^3/uL (0.2-0.9); Monocytes % 7.5 %; Neutrophils # 6.47 10^3/uL (1.8-7.7); Neutrophils % 68.9 %; Nucleated Red Blood Cells % 0 %; Platelet Count 218 10^3/cmm (157-399); Red Cell Distribution Width 12.3 % (12.1-15.1); White Blood Count 9.38 10^3/uL (3.29-11.43)
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
[2024-04-14 01:05] LABS: Alanine Aminotransferase 18 U/L (0-41); Albumin Level 4.1 g/dL (3.5-5.2); Alkaline Phosphatase 98 U/L (40-130); Anion Gap 14.3 (5-19); Aspartate Amino Transferase 21 U/L (0-40); Blood Urea Nitrogen 19 mg/dL (6-20); Calcium 8.6 mg/dL (8.5-10.5); Carbon Dioxide 24 mmol/L (22-29); Chloride 101 mmol/L (98-107); Creatinine Clr Calc Pharmacy 124.3293; Globulin 2.3 g/dL (1.3-4.6); Glomerular Filtration Rate 114.3 mL/min (90-130); Glucose 121 mg/dL (65-115); Osmolality Calculated 286 mOsm/kg (285-295); Potassium 3.3 mmol/L (3.5-5.1); Sodium 136 mmol/L (136-145); Thyroid Stimulating Hormone 2.71 uIU/mL (0.27-4.20); Total Bilirubin 1.3 mg/dL (0.15-1.2); Total Protein 6.4 g/dL (6.6-8.7)
[2024-04-14 01:06] LABS: Acetaminophen < 5.0 ug/mL (10-30); Alcohol Level < 10 mg/dL (0-10); Salicylate < 0.3 mg/dL (3-10)
[2024-04-14] MEDS: ondansetron 2 mg/ML SDV 2 mL 4 MG IVP (01:30)
--- NOTE | 2024-04-14 02:07 | PC.NURSE ---
Pt. here for [employer] accident , where he state that he was stepping over a wire at work and hit his head on a television monitor. Pt. states that he is suicidal once in the room for triage. [employer] called to collect urine drug and alcohol testing.
[2024-04-14 02:41] LABS: Add Urine Culture? No; Bilirubin Urine Neg (Negative); Blood Urine Neg (Negative); Glucose Urine UA Norm (Normal); Ketones Urine Negative (Negative); Leukocyte Esterase Urine Negative (Negative); Nitrate Urine Negative (Negative); Protein Urine Neg (Negative); Urine Appearance Clear (CLEAR); Urine Color Yellow (Yellow); Urobilinogen Urine Neg (Negative); pH Urine 7 (5-7)
[2024-04-14 02:46] LABS: Amphetamines Screen Urine Negative (Negative); Barbiturates Screen Urine Negative (Negative); Benzodiazepines Screen Urine Negative (Negative); Cocaine Screen Urine Negative (Negative); Opiate Screen Urine Negative (Negative); PCP Screen Urine Negative (Negative); THC Screen Urine Positive (Negative)
--- NOTE | 2024-04-14 03:18 | PC.NURSE ---
96 Hour Hold Upon approaching patient for education regarding 96 hour hold, patient stated, You don't have to tell me, I've heard it before. When is it over? Date of completed 96 hour hold relayed to patient. Patient again asked if he would like his rights read to him, patient denied education. Copy of rights left at bedside. Witness, ESPERANZA Hughes at bedside.
[2024-04-14 04:21] VITALS: BP 127/84; PULSE 65; RESP 15; TEMP 36.6; O2SAT 98
--- NOTE | 2024-04-14 04:23 | PC.NURSE ---
pt care this nurse took over pt care at this time. pt cooperative with vitals. room neatened. no further needs at this time
[2024-04-14 07:56] VITALS: BP 147/87; PULSE 64; RESP 16; TEMP 36.7; O2SAT 99
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
[2024-04-14 13:47] VITALS: BP 113/78; PULSE 67; RESP 16; TEMP 36.8; O2SAT 99
[2024-04-14] MEDS: acetaminophen 325 mg Tablet 650 MG PO (15:42)
--- NOTE | 2024-04-14 16:23 | PC.NURSE ---
RN ATTEMPTED TO GIVE PT PROZAC [address] BRYAN, PT STATES I'M NOT TAKING MEDIATIONS. RN ASKED PT IF DR. BRYAN HAD TALKED TO HIM ABOUT TAKING MEDICATIONS PT STATES YES BUT HE SAID I DIDN'T HAVE TO TAKE ANYTHING. I JUST NEED TO TALK TO SOMEONE. SHAYNE MATA WAS NOTIFIED OF PTS REFUSAL AND ATTEMPTED TO ENCOURAGE PT TO TAKE PROZAC BUT CONTINUES TO DECLINE.
[2024-04-14 20:01] VITALS: BP 134/74; PULSE 73; RESP 18; TEMP 36.7; O2SAT 95
[2024-04-14] MEDS: ibuprofen 600 mg Tablet PO (20:26)
[2024-04-15 06:00] VITALS: BP 119/77; PULSE 63; RESP 18; TEMP 36.3; O2SAT 100
[2024-04-15] MEDS: fluoxetine 10 mg Capsule PO (08:22)
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
[2024-04-15 12:42] VITALS: BP 119/77; PULSE 63; RESP 18; TEMP 36.3; O2SAT 100
== END 2024-04-15 14:15 | disposition home or self-care (01) | DRG 885 ==
LOC: ER 04-14 01:59 → ER IP 04-14 03:16 → NP 04-14 07:27
PROVIDERS: Admitting Provider Psychiatry & Neurology Psychiatry; Emergency Provider Emergency Medicine; Visit Provider Psychiatry & Neurology Psychiatry
DX: F33.2 Major depressive disorder, recurrent severe without psychotic features (principal); R45.851 Suicidal ideations; Z59.02 Unsheltered homelessness; R45.850 Homicidal ideations; F43.10 Post-traumatic stress disorder, unspecified; Z62.810 Personal history of physical and sexual abuse in childhood; S01.01XA Laceration without foreign body of scalp, initial encounter; W22.8XXA Striking against or struck by other objects, initial encounter
CPT/HCPCS: 12001; 80053; 80306; 80307; 81001; 84443; 85025; 93005; 99285; J2405

== ENCOUNTER 2024-04-26 12:12 | Emergency (ER) | payer OTHER, SELFPAY ==
[2024-04-26 12:29] VITALS: BP 159/69; PULSE 68; RESP 14; TEMP 36.9; O2SAT 96
[2024-04-26 12:42] VITALS: PULSE 79; O2SAT 98
--- NOTE | 2024-04-26 12:45 | W.ED.RECABL ---
HPI - Recheck/Abnormal Lab/Rx General: Chief Complaint: Recheck/Abnormal Lab/Rx Stated Complaint: Wants georgi removed Time Seen by Provider: 04/26/24 12:36 Source: patient Mode of arrival: ambulatory Limitations: no limitations History of Present Illness: 28-year-old male who had georgi placed roughly 10 days ago on the head he had 4 georgi placed he is here for staple removal he has no complaints at this time denies any headache denies any bleeding or drainage from the wound Review of Systems Const: Denies: fever(s) Skin/Breast: Denies: rash Neuro: Denies: headache(s) PFSH ED PFSH: Medical History Seminoma of left testis Surgical History Port-A-Cath in place Hx of unilateral orchiectomy (03/27/22) Left radical orchiectomy Family History Mother Cervical cancer Brother , 28 Brain aneurysm Social History Smoking and tobacco/nicotine status: current every day tobacco/nicotine user (vapes ) Alcohol intake: current Alcohol intake frequency: holidays/special occasions only Alcohol type: hard liquor Substance/Drug Use: never Adopted: No Caregiver/support person: No Lives independently: Yes Housing: Apartment Marital status: Life Partner Highest education level completed: High School Graduate service: No Current occupational status: employed Physical Exam Const: COMMON NORMALS: patient oriented x3 HENMT: OTHER: Wound to head that is clean dry intact has 4 georgi there Chest: COMMONS NORMALS: normal inspection of the chest Resp: COMMON NORMALS: normal respiratory effort Neuro: COMMON NORMALS: patient oriented x3 Course Vital Signs: Vital signs: Vital Signs Temperature 98.5 F 04/26/24 12:29 Pulse Rate 79 04/26/24 12:42 Respiratory Rate 14 04/26/24 12:29 Blood Pressure 159/69 04/26/24 12:29 Pulse Oximetry 98 04/26/24 12:42 MDM - Recheck/Abnormal Lab/Rx Medical Decision Making Patient presents here for staple removal did remove 4 georgi wounds clean dry intact no signs of infection he stable for discharge Medical Records I reviewed the patient's medical records. No radiology studies performed this visit Discharge Plan Discharge Patient Disposition: Home Clinical Impression: Encounter for staple removal Condition: Stable Prescriptions: No Action Prozac 20 mg capsule 20 mg PO DAILY Qty: 30 1RF trazodone 100 mg tablet 100 mg PO .at night Qty: 30 1RF Discharge Orders: Discharge ED (Routine); Ordered 04/26/24 Ordered By: Tri Quiles Discharge Diet: Advance as tolerated Discharge Activity: Resume usual activity Patient Instructions: Laceration (ED) Coding Level of Care Code ED Control Clerk for Heather Bermudez
== END 2024-04-26 12:45 | disposition home or self-care (01) ==
PROVIDERS: Emergency Provider Emergency Medicine
DX: Z48.02 Encounter for removal of sutures (principal); F17.290 Nicotine dependence, other tobacco product, uncomplicated
CPT/HCPCS: 99281

== ENCOUNTER 2024-07-27 15:02 | Oncology outpatient (recurring) (ONCR) | payer SELFPAY | END 2024-08-07 23:59 | disposition home or self-care (01) | PROVIDERS: Visit Provider Internal Medicine Medical Oncology | DX: Z45.2 Encounter for adjustment and management of vascular access device (principal) | CPT/HCPCS: 96523 ==

== ENCOUNTER 2024-08-24 15:13 | Oncology outpatient (recurring) (ONCR) | payer SELFPAY | END 2024-09-07 23:59 | disposition home or self-care (01) | PROVIDERS: Visit Provider Internal Medicine Medical Oncology | DX: Z45.2 Encounter for adjustment and management of vascular access device (principal) | CPT/HCPCS: 96523 ==